=== PATIENT | female | born 1955 | race Caucasian/White ===

== ENCOUNTER 2017-04-06 00:03 | Emergency (ER) | payer OTHER ==
[2017-04-06 00:28] VITALS: BP 101/76; PULSE 72; TEMP 98.2; BMI 23.8
--- NOTE | 2017-04-06 01:00 | PDOC ---
History of Present Illness <Carrie Spencer - Last Filed: 04/06/17 02:22> - General History Source: Patient, Family Exam Limitations: No Limitations - History of Present Illness Initial Comments: 04/06/17 01:57 61yo Female patient with no significant past medical history presents to ED c/o head injury, fall, laceration prior to arrival. Patient niece states her aunt was cleaning fireplace when she slipped fell and hit her head on bricks. Denies LOC, neck injury/pain, or any other complaints at this time. Occurred: reports: just prior to arrival. denies: this morning, this afternoon , this evening, yesterday, last week, other Severity: reports: mild. denies: moderate, severe Pain Location: reports: head. denies: none, abdomen, back, chest, face, lower extremity, mouth, neck, other, pelvis, upper extremity Method of Injury: Yes: fall. No: unknown, assault, direct blow, motor vehicle crash, other Modifying Factors: worse with: None, cold therapy, immobilization, pain medication, rest, other Loss of Consciousness: no loss of consciousness Associated Symptoms (Fall): denies symptoms <Tanesha Willson - Last Filed: 04/06/17 02:38> - General Chief Complaint: Injury Stated Complaint: INJURY TO HEAD Time Seen by Provider: 04/06/17 00:31 Past History <Carrie Spencer - Last Filed: 04/06/17 02:22> - Travel Traveled outside of the country in the last 30 days: No Close contact w/someone who was outside of country & ill: No - Suicide/Smoking/Psychosocial Hx Smoking History: Never smoked Have you smoked in the past 12 months: No Information on smoking cessation initiated: No Hx Alcohol Use: No Drug/Substance Use Hx: No <Tanesha Willson - Last Filed: 04/06/17 02:38> - Past Medical History Allergies/Adverse Reactions: Allergies Allergy/AdvReac Type Severity Reaction Status Date / Time Penicillins Allergy Verified 04/06/17 00:25 Trauma Specific PMHX - Complaint Specific PMHX Arthritis: No Back Injury: No Neck Injury: No Hx Sacro Iliac Joint Dysfunction: No <Tanesha Willson - Last Filed: 04/06/17 02:38> Review of Systems - Review of Systems Able to Perform ROS?: Yes Is the patient limited Kiswahili proficient: No Musculoskeletal: Yes: Other (Head Injury) Integumentary: Yes: Other (Laceration) All Other Systems: Reviewed and Negative <Tanesha Willson - Last Filed: 04/06/17 02:38> *Physical Exam - Vital Signs Last Vital Signs Temp Pulse Resp BP Pulse Ox 98.2 F 72 14 101/76 97 04/06/17 00:25 04/06/17 00:25 04/06/17 00:25 04/06/17 00:25 04/06/17 00:25 <Carrie Spencer - Last Filed: 04/06/17 02:22> - Vital Signs Last Vital Signs Temp Pulse Resp BP Pulse Ox 98.2 F 72 14 101/76 97 04/06/17 00:25 04/06/17 00:25 04/06/17 00:25 04/06/17 00:25 04/06/17 00:25 - Physical Exam General Appearance: Yes: Nourished, Appropriately Dressed. No: Apparent Distress, Mild Distress, Moderate Distress, Severe Distress HEENT: positive: EOMI, KIMBERLY, Normal ENT Inspection, Normal Voice, Symmetrical, TMs Normal, Pharynx Normal. negative: Scleral Icterus (R), Scleral Icterus (L) , Muffled/Hoarse voice, Pharyngeal Erythema, Tonsillar Exudate, Nasal Congestion , TM Bulging, TM Dull, TM Erythema Neck: positive: Trachea midline, Supple. negative: Rigid, Decreased range of motion, Stridor, Lymphadenopathy (R), Lymphadenopathy (L), Tender lateral, Tender midline Respiratory/Chest: positive: Lungs Clear, Normal Breath Sounds. negative: Chest Tender, Respiratory Distress, Accessory Muscle Use, Labored Respiration, Rapid RR, Paradoxal Breathing, Stridor Cardiovascular: positive: Regular Rhythm, Regular Rate Musculoskeletal: positive: Normal Inspection. negative: CVA Tenderness, Decreased Range of Motion, Vertebral Tenderness Extremity: positive: Normal Capillary Refill, Normal Inspection, Normal Range of Motion. negative: Pedal Edema, Swelling, Calf Tenderness, Erythema, Inflammation Integumentary: positive: Normal Color, Dry, Warm, Other (Scalp laceration) Neurologic: positive: fullerette II-XII NML intact, Fully Oriented, Alert, Normal Mood/ Affect, Normal Response, Motor Strength 5/5 <Tanesha Willson - Last Filed: 04/06/17 02:38> Procedures - Laceration/Wound Repair Head Wound Length: to 2.5 cm Wound's Depth, Shape: stellate Irrigated w/ Saline: Yes Betadine Prep: No Anesthesia: 1% Lidocaine Amount of Anesthetic (ccs): 3 Wound Repaired With: Sutures Suture Size/Type: 5:0, proline Number of Sutures: 3 <Tanesha Willson - Last Filed: 04/06/17 02:38> ED Treatment Course - RADIOLOGY Radiograph Interpretation: EXAM: CT HEAD WITHOUT CONTRAST FINDINGS: No acute brain parenchymal abnormality. No hemorrhage, mass or acute territorial infarct. No skull fracture. Clear visualized paranasal sinuses. Visualized mastoid air cells clear. Binta Barragan M.D. 04/06/2017 02:20 EST <Carrie Spencer - Last Filed: 04/06/17 02:22> - RADIOLOGY Radiology Studies Ordered: Category Date Time Status HEAD CT WITHOUT CONTRAST [CT] Stat CT Scan 04/06/17 00:59 Ordered <Tanesha Willson - Last Filed: 04/06/17 02:38> *DC/Admit/Observation/Transfer - Attestations Scribe Attestion: 04/06/17 02:23 Documentation prepared by Carrie Spencer, acting as caregivers non medical for Tanesha Willson NP <Carrie Spencer - Last Filed: 04/06/17 02:22> - Discharge Dispostion Admit: No <Tanesha Willson - Last Filed: 04/06/17 02:38> Diagnosis at time of Disposition: Laceration Injury of head Qualifiers: Encounter type: initial encounter Qualified Code(s): S09.90XA - Unspecified injury of head, initial encounter; S09.90XA - Unspecified injury of head, initial encounter - Discharge Dispostion Disposition: HOME Condition at time of disposition: Stable - Referrals Referrals: Hannah De La Torre [Primary Care Provider] - - Patient Instructions Printed Discharge Instructions: DI for Closed Head Injury Additional Instructions: Follow up with your primary care provider in 5 days for suture removal or return to this emergency department for removal of sutures in scalp. Apply antibiotic ointment to affected area daily and as needed. Print Language: ARABIC
== END 2017-04-06 03:01 | disposition home or self-care (01) ==
LOC: JER 00:03
PROC: 0HQ0XZZ Repair Scalp Skin, External Approach (ICD-10-PCS; principal; 2017-04-06)
DX: S01.01XA Laceration without foreign body of scalp, initial encounter (principal); W01.118A Fall on same level from slipping, tripping and stumbling with subsequent striking against other sharp object, initial encounter; Y93.E9 Activity, other interior property and clothing maintenance; Y92.038 Other place in apartment as the place of occurrence of the external cause; Y99.8 Other external cause status
CPT/HCPCS: 12001-25; 70450-TC; 99281-25

== ENCOUNTER 2017-04-09 18:11 | Emergency (ER) | payer OTHER ==
[2017-04-09 18:19] VITALS: BP 134/67; PULSE 78; TEMP 98.6; BMI 24.7
--- NOTE | 2017-04-09 18:55 | PDOC ---
Suture Removal/Wound Check HPI - History of Present Illness Chief Complaint: Suture/Staple Removal(Here) Stated Complaint: staple removal Time Seen by Provider: 04/09/17 18:45 History Source: Yes: Patient Exam Limitations: Yes: No Limitations Treated at: [facility] - Previous ED Treatment Tetanus Immunization: Yes: Up to Date Antibiotics Prescribed: No Past History - Travel Traveled outside of the country in the last 30 days: No Close contact w/someone who was outside of country & ill: No - Past Medical History Allergies/Adverse Reactions: Allergies Allergy/AdvReac Type Severity Reaction Status Date / Time Penicillins Allergy Verified 04/09/17 18:19 Other medical history: denies - Suicide/Smoking/Psychosocial Hx Smoking History: Never smoked Have you smoked in the past 12 months: No Information on smoking cessation initiated: No Hx Alcohol Use: No Drug/Substance Use Hx: No Substance Use Type: None Suture Removal/Wound Check PE - Physical Exam Laceration/Wound Check Symptoms: reports: None Current Severity Level: None Maximum Severity Level: None Pain Localization: None Location of Laceration/Wound: right: Head *Review of Systems - Review of Systems Able to Perform ROS?: Yes Constitutional: Yes: See HPI. No: Symptoms Reported HEENTM: No: Symptoms Reported Integumentary: Yes: See HPI. No: Symptoms Reported, Bruising Neurological: Yes: See HPI. No: Symptoms reported, Headache All Other Systems: Reviewed and Negative Medical Decision Making - Medical Decision Making 04/09/17 18:55 4 sutures from scalp removed without incident patient tolerated well *DC/Admit/Observation/Transfer Diagnosis at time of Disposition: Encounter for removal of sutures - Discharge Dispostion Disposition: HOME Condition at time of disposition: Stable Admit: No - Patient Instructions Printed Discharge Instructions: DI for Suture Removal
== END 2017-04-09 18:58 | disposition home or self-care (01) ==
LOC: JERFT 18:11
DX: Z48.02 Encounter for removal of sutures (principal)
CPT/HCPCS: 99281-25

== ENCOUNTER 2019-03-09 15:56 | Emergency (ER) | payer OTHER ==
[2019-03-09 16:12] VITALS: BP 109/50; PULSE 97; TEMP 98.9; BMI 23.8
--- NOTE | 2019-03-09 16:23 | PDOC ---
History of Present Illness - General Chief Complaint: Diarrhea Stated Complaint: Diarrhea/WEAKNESS Time Seen by Provider: 03/09/19 16:19 - History of Present Illness Initial Comments: 03/09/19 17:04 HPI: 63 y/o F with no pmh presenting with 5 days of loose stools and crampy lower abdominal pain. Pain is nonradiating and worse during BMs. Pain is intermittent and currently she has no pain. Denies any BPR, but stools appeared darker after taking peptobismol. Denies any recent sick contacts or recent travel. Denies eating any different or suspicious foods. Denies any water diarrhea. Denies nausea, emesis, fever, LH, dizziness, cp, SOB, dysuria. Has never had a colonoscopy. Patient is still tolerating PO but has had decreased appetite today PMHx: as noted above ROS: as noted SHx: Denies tobacco use; no alcohol use; no rec drugs Allergies: penicillin ROS: GENERAL/CONSTITUTIONAL: No fever or chills. No weakness. HEAD, EYES, EARS, NOSE AND THROAT: No change in vision. No ear pain or discharge. No sore throat. CARDIOVASCULAR: No chest pain or shortness of breath RESPIRATORY: No cough, wheezing, or hemoptysis. GASTROINTESTINAL: No nausea, vomiting, diarrhea or constipation. GENITOURINARY: No dysuria, frequency, or change in urination. MUSCULOSKELETAL: No joint or muscle swelling or pain. No neck or back pain. SKIN: No rash NEUROLOGIC: No headache, vertigo, loss of consciousness, or change in strength/ sensation. ENDOCRINE: No increased thirst. No abnormal weight change HEMATOLOGIC/LYMPHATIC: No anemia, easy bleeding, or history of blood clots. ALLERGIC/IMMUNOLOGIC: No hives or skin allergy. PE: GENERAL: Awake, alert, and fully oriented, no acute distress HEAD: No signs of trauma, normocephalic, atraumatic EYES: EOMI, sclera anicteric, conjunctiva clear ENT: Auricles normal inspection, hearing grossly normal, nares patent, oropharynx clear without exudates. Dry mucosa NECK: Normal ROM, no lymphadenopathy LUNGS: No increased work of breathing, symmetrical chest rise, clear to auscultation bilaterally, no wheezes, crackles or rhonchi HEART: Regular rate and rhythm, normal S1 and S2, no murmurs, peripheral pulses 2+ and equal bilaterally. ABDOMEN: Soft, nontender, nondistended, normoactive bowel sounds. No guarding, no rebound. No masses EXTREMITIES: Normal inspection, Normal range of motion, no edema. No clubbing or cyanosis. NEUROLOGICAL: Cranial nerves II through XII grossly intact. Normal speech, normal gait, no focal sensorimotor deficits SKIN: Warm, Dry, normal turgor, no rashes or lesions noted Past History - Past Medical History Allergies/Adverse Reactions: Allergies Allergy/AdvReac Type Severity Reaction Status Date / Time Penicillins Allergy Verified 03/09/19 16:11 COPD: No CHF: No - Suicide/Smoking/Psychosocial Hx Smoking History: Never smoked Have you smoked in the past 12 months: No Hx Alcohol Use: No Drug/Substance Use Hx: No Substance Use Type: None *Physical Exam - Vital Signs Last Vital Signs Temp Pulse Resp BP Pulse Ox 98.9 F 97 H 18 109/50 L 99 03/09/19 16:09 03/09/19 16:09 03/09/19 16:09 03/09/19 16:09 03/09/19 16:09 ED Treatment Course - LABORATORY CBC & Chemistry Diagram: 03/09/19 18:10 03/09/19 18:10 Medical Decision Making - Medical Decision Making 03/09/19 17:25 63 y/o F with no pmh presenting with 5 days of loose stools and crampy lower abdominal pain. Vitals with BP 109/50 HR 97. PE notable only for dry mucosa; abdomen is soft, NDNT -cbc, cmp -1L IVF 03/09/19 19:42 paitent received morphine for pain control Patient symptoms improved and largely resolved. Discussed with patient condition and negative bloodwork Patient understands instructions and return pcxn and is comfortable with DC with followup with PCP *DC/Admit/Observation/Transfer Diagnosis at time of Disposition: Loose stools Abdominal pain Qualifiers: Abdominal location: unspecified location Qualified Code(s): R10.9 - Unspecified abdominal pain - Discharge Dispostion Disposition: HOME Condition at time of disposition: Improved Decision to Admit order: No - Referrals Referrals: Arnoldo Giron MD [Primary Care Provider] - - Patient Instructions Printed Discharge Instructions: DI for Abdominal Pain-Adult Additional Instructions: Additional Instructions: Please return to the emergency department with any new or worsening symptoms or concerns including worsening abdominal pain, severe vomiting, not able to tolerate food, fainting, blood in your stools. Please follow up with your primary care physician within 72 hours. Please take tylenol for pain control Instrucciones adicionales: Regrese al departamento de emergencias con cualquier sntoma o inquietud nueva o que empeore, incluyendo empeoramiento del dolor abdominal, vmitos severos, incapaz de tolerar alimentos, desmayos, kole en las heces. Michael un seguimiento con baldwin mdico de atencin primaria dentro de las 72 horas. Odem tylenol para controlar el dolor. Print Language: IRISH - Post Discharge Activity
[2019-03-09] MEDS ORDERED: SODIUM CHLORIDE 1,000 ML IV STA (16:47)
--- NOTE | 2019-03-09 16:48 | PDOC ---
Attending Attestation - Resident Resident Name: CamdenJose Davidvahid - ED Attending Attestation I have performed the following: I have examined & evaluated the patient, The case was reviewed & discussed with the resident, I agree w/resident's findings & plan, Exceptions are as noted - HPI HPI: 03/09/19 16:40 63y F presents with 4 days of intermitten crampy abd pain with loose stool, approx 5 episodes of loose stool without blood or melena. Attempted taking peptol bismol without improvement. Denies any n/v, sick contacts, recent travel , lightheadedness, cp, sob. Tolerating oral intake but notes she has a poor appettite. Pt denies any recent abx use. on exam pt in no distress, well appearing abd soft nontender, no cva tenderness card: rrr, no mrg pulm: cta b/l suspec enteritis will obtain blood work fluids for hydration abd soft nontender, no signs of acute surgical pathology
[2019-03-09 18:30] LABS: HEMATOCRIT 36.5 % (32.4-45.2); HEMOGLOBIN 12.3 GM/dL (10.7-15.3); LYMPH % 9.6 % (8-40); MCH 28.6 pg (25.7-33.7); MCHC 33.6 g/dl (32.0-36.0); MEAN CELL VOLUME 85.2 fl (80-96); MONO % 7.4 % (3.8-10.2); NEUT % 82.5 % (42.8-82.8); PLATELET COUNT 263 K/MM3 (134-434); RBC 4.29 M/mm3 (3.60-5.2); RDW 13.6 % (11.6-15.6); WHITE BLOOD COUNT 10.6 K/mm3 (4.0-10.0)
[2019-03-09 18:31] LABS: EOS % 0.5 % (0-4.5)
[2019-03-09] MEDS ORDERED: morphine CARPU-JECT 2 MG/1 ML DISP.SYRIN IVPUSH ONE (18:35)
[2019-03-09] MEDS ORDERED: MORPHINE SULFATE 2 MG/ML VIAL ONE (18:36)
[2019-03-09 18:47] LABS: ALBUMIN 3.3 g/dl (3.4-5.0); BILIRUBIN,TOTAL 0.4 mg/dL (0.2-1); BLOOD UREA NITROGEN 5.6 mg/dL (7-18); CALCIUM 8.8 mg/dL (8.5-10.1); CREATININE 0.8 mg/dL (0.55-1.3); TOT PROT 7.4 g/dl (6.4-8.2)
== END 2019-03-09 20:04 | disposition home or self-care (01) ==
LOC: JER 15:56
PROC: 3E0337Z Introduction of Electrolytic and Water Balance Substance into Peripheral Vein, Percutaneous Approach (ICD-10-PCS; principal; 2019-03-09)
PROC: 3E033NZ Introduction of Analgesics, Hypnotics, Sedatives into Peripheral Vein, Percutaneous Approach (ICD-10-PCS; 2019-03-09)
DX: R19.7 Diarrhea, unspecified (principal); R19.5 Other fecal abnormalities; R10.9 Unspecified abdominal pain
CPT/HCPCS: 36415; 80053; 85025; 96361; 96374; 99281-25; J7030